=== PATIENT | female | born 1970 | race Caucasian/White ===

== ENCOUNTER → 2018-08-05 | Outpatient (CLI) | payer OTHER ==
[~2018-08-05] MED LIST: REGADENOSON 0.4 MG/5 ML DISP.SYRIN. IV ONE
--- NOTE | 2018-08-05 09:59 | PCVCIMAG ---
APPROVED REPORT Study performed: 08/05/2018 07:54:23 EXAM: Comprehensive 2D, Doppler, and color-flow Echocardiogram Patient Location: Echo lab Room #: 2Status: routine BSA: 1.92 HR: 73 bpmBP: 138/86 mmHg Rhythm: LBBB Other Information Study Quality: Good Risk Factors: Cardiac Risk Factors: HTN Indications Chest Pain Hypertension/HDD 2D Dimensions IVSd: 8.97 (7-11mm)LVOT Diam: 19.87 (18-24mm) LVDd: 41.35 mm PWd: 6.99 (7-11mm)Ascending Ao: 27.73 (22-36mm) LVDs: 24.16 (25-40mm) Left Atrium: 28.82 (27-40mm) Aortic Root: 25.05 mm LV Single Plane 4CH: 51.73 % LV Single Plane 2CH: 56.74 % Biplane EF: 54.6 % Volumes Left Atrial Volume (Systole) Single Plane 4CH: 52.30 mLSingle Plane 2CH: 25.21 mL Biplane LA Volume: 37.00 mLLA ESV Index: 19.00 mL/m2 Aortic Valve AoV Peak Dimitrios.: 1.50 m/s AO Peak Gr.: 9.84 mmHgLVOT Max P.21 mmHg LVOT Max V: 1.11 m/s SHABANA Vmax: 2.31 cm2 Mitral Valve E/A Ratio: 1.3 MV Decel. Time: 193.40 ms MV E Max Dimitrios.: 0.58 m/s MV A Dimitrios.: 0.46 m/s IVRT: 83.04 ms TDI E/Lateral E': 5.80E/Medial E': 14.50 Medial E' Dimitrios.: 0.04 m/s Lateral E' Dimitrios.: 0.10 m/s Pulmonary Valve PV Peak Dimitrios.: 0.92 m/sPV Peak Gr.: 3.40 mmHg Pulmonary Vein P Vein S: 0.55 m/sP Vein A: 0.94 m/s P Vein D: 0.48 m/sP Vein A Dur.: 114.2 msec P Vein S/D Ratio: 1.15 Tricuspid Valve TR Peak Dimitrios.: 1.09 m/s TR Peak Gr.: 4.71 mmHg TV Vmax: 0.70 m/sPA Pressure: 12.00 mmHg Left Ventricle The left ventricle is normal size. Paradoxical septal motion consistent with conduction abnormality. There is normal left ventricular wall thickness. Left ventricular systolic function is normal. The left ventricular ejection fraction is within the normal range. LVEF is 55%. The left ventricular diastolic function is normal. Right Ventricle The right ventricle is normal size. The right ventricular systolic function is normal. Atria The left atrium size is normal. The right atrium size is normal. Aortic Valve The aortic valve is normal in structure. No aortic regurgitation is present. There is no aortic valvular stenosis. Mitral Valve The mitral valve is normal in structure. There is no mitral valve regurgitation noted. No evidence of mitral valve stenosis. Tricuspid Valve The tricuspid valve is normal in structure. Trace tricuspid regurgitation. No apparent pulmonary hypertension. Pulmonic Valve The pulmonary valve is normal in structure. There is no pulmonic valvular regurgitation. Great Vessels The aortic root is normal in size. The ascending aorta is normal in size. IVC is not well visualized. Pericardium There is no pericardial effusion. There is no pleural effusion. <Conclusion> The left ventricle is normal size. There is normal left ventricular wall thickness. Left ventricular systolic function is normal. Paradoxical septal motion consistent with conduction abnormality. The right ventricle is normal size. The left atrium size is normal. The aortic valve is normal in structure. The mitral valve is normal in structure. Trace tricuspid regurgitation.
--- NOTE | 2018-08-05 12:52 | PCVCIMAG ---
APPROVED REPORT Imaging Protocol: Rest Tc-99m/Stress Tc-99m 1 day Study performed: 08/05/2018 08:42:28 Indication: Chest pain, Dyspnea Patient Location: Out-Patient Stress Nurse: Ngozi Lopez RN, Zhanna Moss RN NM Tech:Savage Larson NMTCB Ht: 5 ft 7 in Wt: 178 lbs BSA: 1.92 m2 HR: 94 bpm BP: 155/94 mmHg BMI: 27.87 Rhythm: Sinus Rhythm, LBBB Medical History Medical History: HTN, LBBB Medications: Albuterol, Losartan, Omeprazole, ProAir, Symbicort Allergies: Morphine, Red Dye Pretest Chest Pain Characteristics: No chest pain Exercise History: Physically active Resting Data Rest SPECT myocardial perfusion imaging was performed in supine position 45 minutes following the intravenous injection of 11.4 mCi of Tc-99m Sestamibi. Time of rest injection: 0850 Date: 08/05/2018 Administration Route: IV Administration Site: Right AC Pharmacologic Stress Pharmacologic stress test was performed by injecting Regadenoson 0.4 mg IV push over 10-15 seconds immediately followed by the intravenous injection of 36 mCi of Tc-99m Sestamibi. Time of stress injection: 1010 Date: 08/05/2018 Administration Route: IV Administration Site: Right AC Gated Stress SPECT was performed 45 minutes after stress injection. The images were gated to evaluate regional wall motion and calculate left ventricular ejection fraction. Stress Test Details Stress Test: Pharmacologic stress testing performed using 0.4 mg of regadenoson per 5 mL given IV over 10 seconds. Reason for pharmacologic stress test: LBBB. HRMax Heart Rate (APMHR): 174 bpm Resting HR: 94 bpmTarget HR (85% APMHR): 147 bpm Max HR Achieved: 141 bpm % of APMHR: 81 Recovery HR: 89 bpm BP Resting BP: 155/94 mmHg Max BP: 168/94 mmHg Recovery BP: 138/81 mmHg ECG Resting ECG: Sinus Rhythm, LBBB Stress ECG: Sinus Tachycardia, LBBB ST Change: Nondiagnostic due to LBBB Arrhythmia: None Recovery ECG: Sinus Rhythm, LBBB Clinical Reason for Termination: Completed protocol Stress Symptoms: Chest pain, Dyspnea, Lightheaded Exercise duration: 4 min 00 sec Symptoms resolved with caffeine. Study Quality Study: Good Study Data Post stress, the left ventricular ejection was 75%.. SSS: 1 SRS: 4 SDS: 0 TID = 0.94. Perfusion Normal left ventricular perfusion. Normal perfusion on both the stress and rest images. Wall Motion Normal left ventricular wall motion. Nuclear Conclusion ECG Findings: non-diagnostic Clinical Findings: non-diagnostic Nuclear Findings: negative for ischemia Exercise Capacity: not assessed Left Ventricular Function: normal Risk Study: low This study is of low probability for inducible ischemia or prior infarct. Normal global and segmental LV systolic function.
== END | disposition home or self-care (01) ==
LOC: PCVCIMAG 09:23
PROVIDERS: ATTEND Internal Medicine Cardiovascular Disease
DX: I10 Essential (primary) hypertension (principal); R07.9 Chest pain, unspecified; R06.00 Dyspnea, unspecified; I44.7 Left bundle-branch block, unspecified
CPT/HCPCS: 78452; 93017; 93306; A9500; J2785